=== PATIENT | female | born 1950 | race Asian ===

== ENCOUNTER → 2020-01-06 10:04 | Outpatient (CLI) | payer MEDICARE, OTHER, SELFPAY ==
--- NOTE | 2020-01-06 18:47 | DI.NM.S_ITS ---
DATE OF SERVICE: 01/06/2020 PROCEDURE: Exercise perfusion study. INDICATION: Chest pain with underlying hypertension, hyperlipidemia. RADIOPHARMACEUTICAL: 26.3 millicurie technetium-99m Myoview IV was injected at stress and 13.7 millicurie technetium-99m Myoview IV was injected at rest. It was one day protocol. FINDINGS: CARDIAC STRESS:: Initially, patient attempted walking on Colin protocol. She walked on Colin protocol for about 6 minutes. Later on, the protocol was changed to modified Colin protocol as patient was not able to keep up with treadmill speed. She walked on modified Colni protocol for an extra 3 minutes and 45 seconds with total duration of exercise 9 minutes and 45 seconds. The patient achieved 85 percent of target heart rate. Normal blood pressure response. Baseline EKG revealed sinus rhythm with repolarization changes. During stress, there was some nonspecific ST changes. Occasional PVCs. Occasional ventricular couplets. No ventricular tachycardia. No chest pain or anginal symptoms. RAW DATA:: There was breast shadow seen. GATED STUDY:: Resting LV ejection fraction 94 percent and stress LV ejection fraction 91 percent. Resting end-diastolic volume 64 mL. No transient ischemic dilatation. TID ratio 0.85, which is within normal limits. Lung-heart ratio 0.30, which is within normal limits. MYOCARDIAL PERFUSION:: Stress supine and resting supine images revealed a small size mildly decreased perfusion of the distal anterior septum and distal anterior wall, which got resolved during prone images, suggestive of breast tissue attenuation artifact. No convincing ischemia or infarction pattern seen. CONCLUSION: 1. I will call this study a normal myocardial perfusion study with evidence of breast tissue attenuation artifact, which got resolved during prone images. 2. The patient achieved 8.9 METS of workload. Functional aerobic impairment - 5 percent. Normal hemodynamic response. No significant sustained arrhythmias. No anginal symptoms. 3. Overall, this is a low risk myocardial perfusion scan. Alyson Mendez - NILAM/gerardo/simone doc#: [id number]/job#: [id number] dd: 01/06/2020 17:19:00 dt: 01/06/2020 18:25:00 DICTATING MD/COPIES TO: Arely Trejo MD COPIES MNE: HAYDER;
== END ==
PROVIDERS: PCP Specialist; Referring Provider Hospitalist; Visit Provider Hospitalist
DX: R07.89 Other chest pain (principal); I10 Essential (primary) hypertension; E78.5 Hyperlipidemia, unspecified
CPT/HCPCS: 78452; 93017; A9502